=== PATIENT | male | born 1945 | race African-American/Black ===

== ENCOUNTER 2016-03-28 10:07 | Emergency (ER) | payer OTHER ==
[~2016-03-28] VITALS: Ht 180.3 cm; Wt 78.2 kg
[~2016-03-28 10:07] MED LIST: IBUPROFEN600 MG PO; ULTRAM50 MG PO
[2016-03-28] MEDS ORDERED: SILVADENE20 GM TP (11:20)
[2016-03-28 11:28] VITALS: BP 155/89
== END 2016-03-28 11:35 | disposition home or self-care (01) ==
LOC: EME → EDBD 10:07 → EME 11:35
DX: T25.222A Burn of second degree of left foot, initial encounter (principal); T25.229A Burn of second degree of unspecified foot, initial encounter; X12.XXXA Contact with other hot fluids, initial encounter; F17.200 Nicotine dependence, unspecified, uncomplicated
CPT/HCPCS: 99281; 99284

== ENCOUNTER 2017-03-04 17:36 | Emergency (ER) | payer OTHER ==
[~2017-03-04] VITALS: Ht 180.3 cm; Wt 85.9 kg
[~2017-03-04 17:36] MED LIST changes: +SILVADENE20 GM TP
[2017-03-04] MEDS ORDERED: NAPROXEN500 MG PO (21:27)
[2017-03-04 22:57] VITALS: BP 134/82
== END 2017-03-04 22:57 | disposition home or self-care (01) ==
LOC: RME 17:36 → EME 17:36 → RME 22:57
PROC: 2W3RX1Z Immobilization of Left Lower Leg using Splint (ICD-10-PCS; principal; 2017-03-04)
DX: S82.832A Other fracture of upper and lower end of left fibula, initial encounter for closed fracture (principal); W10.9XXA Fall (on) (from) unspecified stairs and steps, initial encounter; F17.200 Nicotine dependence, unspecified, uncomplicated
CPT/HCPCS: 73610; 73630; 99281; 99284